=== PATIENT | female | born 1965 | race Caucasian/White ===

== ENCOUNTER 2018-08-10 13:14 | Day surgery (SDC) | payer OTHER ==
[~2018-08-10] VITALS: Ht 170.2 cm; Wt 92.5 kg
[~2018-08-10 13:14] MED LIST: ACET-76 PO; ACET325T14 PO; ANAS1TAB PO; ATOR10TA9 PO; CEPH-368 PO; DIPH25CA61 PO; FLUTICASONE PROP NAS; HYDR-3240 PO; LISI5TAB7 PO; LORA10TA75 PO; MULT-516 PO; ONDA4TAB7 PO
[2018-08-10] MEDS ORDERED: LACTATED RINGERS 1,000 ML IV SCH ×2 (13:23→19:30)
[2018-08-10 13:43] VITALS: BP 121/81
[2018-08-10] MEDS ORDERED: GENTAMICIN 80 MG/2 ML ONE ×2 (14:35→16:32)
[2018-08-10] MEDS ORDERED: SODIUM BICARBONATE 1 MEQ/ML, 50ML VIAL ONE (14:35)
[2018-08-10] MEDS ORDERED: CEFAZOLIN 1,000 MG ONE ×3 (14:35→16:32)
[2018-08-10] MEDS ORDERED: LIDOCAINE-MPF 2% ,5ML ONE (14:35)
[2018-08-10] MEDS ORDERED: EPINEPHRINE 1 MG/ML, 1ML ONE (14:36)
[2018-08-10] MEDS ORDERED: BACITRACIN 50,000 UNIT ONE ×2 (14:36→16:32)
[2018-08-10] MEDS ORDERED: PROPOFOL 50 ML ONE (15:22)
[2018-08-10] MEDS ORDERED: FENTANYL PF 100 MCG/2ML ONE ×5 (15:22→17:48)
[2018-08-10] MEDS ORDERED: MIDAZOLAM 1 MG/ML, 2ML ONE (15:22)
[2018-08-10] MEDS ORDERED: PROPOFOL 10 MG/ML, 20ML ONE ×2 (15:23→15:24)
[2018-08-10] MEDS ORDERED: KETOROLAC 30 MG/1 ML ONE (15:43)
[2018-08-10] MEDS ORDERED: SUCCINYLCHOLINE 20 MG/ML, 10ML ONE (15:43)
[2018-08-10] MEDS ORDERED: ONDANSETRON 2MG/ML, 2ML ONE (15:43)
[2018-08-10] MEDS ORDERED: ROCURONIUM 10 MG/ML,10ML ONE (15:43)
[2018-08-10] MEDS ORDERED: DEXAMETHASONE 4 MG/ML, 1ML ONE (15:43)
[2018-08-10] MEDS ORDERED: EPHEDRINE 50 MG/ML, 1ML IM PRN (17:30)
[2018-08-10] MEDS ORDERED: PROMETHAZINE 25 MG/ML, 1ML IV PRN (17:30)
[2018-08-10] MEDS ORDERED: DIAZEPAM 5 MG/ML, 2ML IVPush PRN (17:30)
[2018-08-10] MEDS ORDERED: FENTANYL PF 100 MCG/2ML IV PRN (17:30)
[2018-08-10] MEDS ORDERED: PROMETHAZINE 25 MG SUPP PR PRN (17:30)
[2018-08-10] MEDS ORDERED: OXYcodone 5 MG/5 ML ORAL.SOL UDC PO PRN (17:30)
[2018-08-10] MEDS ORDERED: ONDANSETRON ODT 8 MG PO PRN (17:30)
[2018-08-10] MEDS ORDERED: MEPERIDINE/PF 25MG/0.5ML IVPush PRN (17:30)
[2018-08-10] MEDS ORDERED: LABETALOL 5MG/ML, 20ML IV PRN (17:30)
[2018-08-10] MEDS ORDERED: MORPHINE SULFATE 4 MG/ML, 1ML IVPush PRN (17:30)
[2018-08-10] MEDS ORDERED: DIPHENHYDRAMINE 50 MG/ML, 1ML IVPush PRN ×2 (17:30→19:30)
[2018-08-10] MEDS ORDERED: ONDANSETRON 2MG/ML, 2ML IV PRN (17:30)
[2018-08-10] MEDS ORDERED: EPHEDRINE 50 MG/ML, 1ML IVPush PRN (17:30)
[2018-08-10] MEDS ORDERED: PROMETHAZINE 12.5 MG SUPP PR PRN (17:30)
[2018-08-10] MEDS ORDERED: MIDAZOLAM 1 MG/ML, 2ML IV PRN (17:30)
[2018-08-10] MEDS ORDERED: OXYcodone 5 MG/5 ML ORAL.SOL UDC ONE (17:46)
[2018-08-10] MEDS ORDERED: MORPHINE SULFATE 4 MG/ML, 1ML ONE (18:31)
[2018-08-10] MEDS ORDERED: HYDROmorphone 2 MG/ML, 1ML IV PRN (19:30)
[2018-08-10] MEDS ORDERED: HYDROcodone/APAP 5/325 TABLET PO PRN (19:30)
[2018-08-10] MEDS ORDERED: ONDANSETRON 2MG/ML, 2ML IVPush PRN (19:30)
== END 2018-08-10 21:45 | disposition home or self-care (01) ==
LOC: OR 13:14 → 4NOR 19:14 → OR 21:45
PROVIDERS: ATTEND Plastic Surgery
DX: T85.49XA Other mechanical complication of breast prosthesis and implant, initial encounter (principal); N65.1 Disproportion of reconstructed breast; Y83.8 Other surgical procedures as the cause of abnormal reaction of the patient, or of later complication, without mention of misadventure at the time of the procedure; Y92.89 Other specified places as the place of occurrence of the external cause; Z88.8 Allergy status to other drugs, medicaments and biological substances; Z88.5 Allergy status to narcotic agent; Z85.3 Personal history of malignant neoplasm of breast
CPT/HCPCS: 11970; 15777; 19366; 20926; C1729; C1762; C1789; J0171; J0330; J0690; J1100; J1580; J1885; J2250; J2405; J2704; J3010; J3490; J7120; G0378

== ENCOUNTER → 2020-07-18 | Outpatient (CLI) | payer OTHER ==
[~2020-07-18] MED LIST changes: +HYDR-1067 PO; -HYDR-3240 PO
== END | disposition home or self-care (01) ==
LOC: CFH 11:15
PROVIDERS: ATTEND Internal Medicine Hematology & Oncology
DX: C50.411 Malignant neoplasm of upper-outer quadrant of right female breast (principal); M85.89 Other specified disorders of bone density and structure, multiple sites
CPT/HCPCS: 77080